=== PATIENT | female | born 1980 | race Hispanic/Latino ===

== ENCOUNTER 2018-05-10 17:14 | Emergency (ER) | payer BC ==
[2018-05-10 17:26] VITALS: BMI 21.1
[2018-05-10 17:29] VITALS: BP 114/73; PULSE 79; TEMP 98.6; O2SAT 100
--- NOTE | 2018-05-10 18:04 | ED PDOC ---
HPI: General Adult Time Seen by Provider: 05/10/18 17:39 Chief Complaint (Nursing): Abnormal Skin Integrity Chief Complaint (Provider): rash History Per: Patient (37 y/o female here with insectbites noted left proximal forearm with worsening swelling and redness noted today. Denies any fevers/ chills. Patient is breast feeding.) Past Medical History Reviewed: Historical Data, Nursing Documentation, Vital Signs Vital Signs: Last Vital Signs Temp 98.6 F 05/10/18 17:27 Pulse 79 05/10/18 17:26 Resp BP 114/73 05/10/18 17:26 Pulse Ox 100 05/10/18 17:26 - Family History Family History: States: No Known Family Hx - Home Medications Home Medications: Ambulatory Orders Medication Instructions Recorded Cephalexin [Keflex] 500 mg PO QID #28 capsule 05/10/18 - Allergies Allergies/Adverse Reactions: Allergies Allergy/AdvReac Type Severity Reaction Status Date / Time No Known Allergies Allergy Verified 05/10/18 17:26 Review of Systems ROS Statement: Except As Marked, All Systems Reviewed And Found Negative Physical Exam - Reviewed Nursing Documentation Reviewed: Yes Vital Signs Reviewed: Yes - Physical Exam Appears: Positive for: Well, Non-toxic, No Acute Distress Head Exam: Positive for: ATRAUMATIC, NORMAL INSPECTION, NORMOCEPHALIC Skin: Positive for: Normal Color, Warm, Rash (four region of 2 cm region of induration. larger region of swelling and erythema 5 cm left posterior arm upper arm distal humerus.) Eye Exam: Positive for: EOMI, Normal appearance, PERRL ENT: Positive for: Normal ENT Inspection Neck: Positive for: Normal, Painless ROM Cardiovascular/Chest: Positive for: Regular Rate, Rhythm Respiratory: Positive for: CNT, Normal Breath Sounds Gastrointestinal/Abdominal: Positive for: Normal Exam, Soft Back: Positive for: Normal Inspection Extremity: Positive for: Normal ROM Neurologic/Psych: Positive for: Alert, Oriented - ECG O2 Sat by Pulse Oximetry: 100 Disposition - Clinical Impression Clinical Impression: Insect bite, Cellulitis of left arm - Patient ED Disposition Is Patient to be Admitted: No - Disposition Disposition: Routine/Home Disposition Time: 18:05 Condition: FAIR Prescriptions: Cephalexin [Keflex] 500 mg PO QID #28 capsule Instructions: Insect Bites and Stings (DC) Forms: [employer] (Cro[place]ian)
== END 2018-05-10 18:07 | disposition home or self-care (01) ==
LOC: H.ER 17:14
DX: L03.114 Cellulitis of left upper limb (principal); W57.XXXA Bitten or stung by nonvenomous insect and other nonvenomous arthropods, initial encounter